=== PATIENT | female | born 1990 | race Caucasian/White ===

== ENCOUNTER → 2017-06-17 | Outpatient (CLI) | payer OTHER ==
[~2017-06-17] MED LIST: BACTRIM; Benadryl 50 mg50 MG PO; CEPH500 PO; CIPR500 PO; IBUP800; IBUP800 PO; OXYACE5T PO; Pepcid20 MG PO; Percocet 5-3251 EACH; Percocet 5-3251 EACH PO; Prednisone20 MG PO; Pyridium200 MG PO; RXOXYACE PO; SULTRISS PO
== END | disposition home or self-care (01) ==
LOC: LAB 10:54
DX: R30.0 Dysuria (principal)
CPT/HCPCS: 87086

== ENCOUNTER → 2017-07-23 | Outpatient (CLI) | payer OTHER ==
[2017-07-25 12:55] LABS: HPV Genotype 16 Not Detected (NOTDET); HPV Genotype 18 Not Detected (NOTDET)
[2017-07-30 09:01] LABS: HPV High Risk Other Detected (NOTDET)
== END | disposition home or self-care (01) ==
LOC: LAB 15:17
PROVIDERS: Obstetrics & Gynecology
DX: R87.613 High grade squamous intraepithelial lesion on cytologic smear of cervix (HGSIL) (principal); R87.810 Cervical high risk human papillomavirus (HPV) DNA test positive; R30.0 Dysuria
CPT/HCPCS: 87086; 87624; 88142

== ENCOUNTER → 2018-01-21 | Outpatient (CLI) | payer OTHER ==
[2018-01-23 16:09] LABS: HPV 16 Negative (Negative); HPV 18 Negative (Negative); HPV OTHER HR TYPES Negative (Negative)
== END | disposition home or self-care (01) ==
LOC: LAB 16:09 → LAB SHORT 16:09
PROVIDERS: Obstetrics & Gynecology
DX: R30.0 Dysuria (principal); R87.810 Cervical high risk human papillomavirus (HPV) DNA test positive
CPT/HCPCS: 87086; 87624; 88142

== ENCOUNTER → 2018-12-07 | Outpatient (CLI) | payer OTHER | END | disposition home or self-care (01) | LOC: LAB SHORT 17:02 → LAB 17:02 | DX: R30.0 Dysuria (principal) | CPT/HCPCS: 87086 ==

== ENCOUNTER → 2019-03-01 | Outpatient (CLI) | payer OTHER ==
[2019-03-01 13:38] LABS: U Amphetamine Screen Not Detected; U Barbituate Screen Not Detected; U Benzodiazapine Screen Not Detected; U Buprenorphine Screen Not Detected; U Cannabinoids Screen Not Detected; U Cocaine Screen Not Detected; U Methadone Screen Not Detected; U Methamphetamine Screen Not Detected; U Opiates Screen Not Detected; U Oxycodone Screen Not Detected; U Phencyclidine Screen Not Detected; U Propoxyphene Screen Not Detected
== END ==
LOC: LAB SHORT 11:20 → LAB 11:20
PROVIDERS: Registered Nurse Psychiatric/Mental Health
DX: Z51.81 Encounter for therapeutic drug level monitoring (principal); Z79.899 Other long term (current) drug therapy
CPT/HCPCS: 81025

== ENCOUNTER → 2019-03-31 | Outpatient (CLI) | payer OTHER ==
[2019-03-31 17:45] LABS: Source, Urine Clean Catch
[2019-03-31 18:46] LABS: Amorphous Mod (0-Heavy)
[2019-03-31 18:47] LABS: Bacteria Few /hpf; Red Blood Cells, Urine 0-2 /hpf (0-2); Squamous Epithelial Cells Few /hpf (Few); White Blood Cells, Urine 0-2 /hpf (0-5)
[2019-04-02 17:07] LABS: CHLAMYDIA TRACHOMATIS, NAA Negative (Negative); NEISSERIA GONORRHOEAE, NAA Negative (Negative)
== END ==
LOC: LAB 16:17 → LAB SHORT 16:17
PROVIDERS: Family Medicine
DX: R30.0 Dysuria (principal); R31.29 Other microscopic hematuria
CPT/HCPCS: 81015; 87086; 87491; 87591

== ENCOUNTER → 2019-07-28 | Outpatient (CLI) | payer OTHER ==
[2019-07-29 15:07] LABS: HPV 16 Negative (Negative); HPV 18 Negative (Negative); HPV OTHER HR TYPES Positive (Negative)
== END ==
LOC: LAB 11:22 → LAB SHORT 11:22
PROVIDERS: Obstetrics & Gynecology
DX: Z12.4 Encounter for screening for malignant neoplasm of cervix (principal)
CPT/HCPCS: 87624; 87625; G0123

== ENCOUNTER → 2020-04-13 | Outpatient (CLI) | payer OTHER | END | disposition home or self-care (01) | LOC: LAB 16:08 → LAB SHORT 16:08 | DX: N39.0 Urinary tract infection, site not specified (principal) | CPT/HCPCS: 87077; 87086; 87186 ==

== ENCOUNTER 2020-08-10 20:37 | Emergency (ER) | payer OTHER ==
[~2020-08-10] VITALS: Ht 154.9 cm; Wt 69.8 kg
[2020-08-10 23:38] LABS: Source, Urine Clean Catch
[2020-08-10 23:45] LABS: Bilirubin, Urine Neg (Neg); Blood, Urine Neg (Neg); Glucose Qualitative, Urine Neg (Neg); Ketones, Urine Neg (Neg); Leukocyte Esterase, Urine 1+ (Neg); Nitrite, Urine Neg (Neg); Protein, Urine Neg (Neg); Urobilinogen, Urine NORM (Normal)
[2020-08-10 23:51] LABS: Appearance, Urine Hazy (Clear); Color, Urine Yellow (P-Yellow)
[2020-08-10 23:52] LABS: Bacteria Mod /hpf; Red Blood Cells, Urine Not Seen /hpf (0-2); Squamous Epithelial Cells Many /hpf (Few)
[2020-08-11] MEDS ORDERED: IBU600 MG PO (00:26)
[2020-08-13 05:08] LABS: CHLAMYDIA TRACHOMATIS, NAA Negative (Negative)
== END 2020-08-11 00:29 | disposition home or self-care (01) ==
LOC: ER 20:37
PROVIDERS: Emergency Medicine; Physician Assistant
DX: N83.202 Unspecified ovarian cyst, left side (principal)
CPT/HCPCS: 76830; 76856; 81001; 87086; 87491; 87591; 99284-25; A9270

== ENCOUNTER → 2021-08-15 | Outpatient (CLI) | payer BC, OTHER ==
[~2021-08-15] MED LIST changes: +IBU600 MG PO
[2021-08-16 16:07] LABS: HPV 16 Negative (Negative); HPV 18 Negative (Negative); HPV OTHER HR TYPES Positive (Negative)
== END | disposition home or self-care (01) ==
LOC: LAB 11:27 → LAB SHORT 11:27
PROVIDERS: Obstetrics & Gynecology
DX: R87.810 Cervical high risk human papillomavirus (HPV) DNA test positive (principal)
CPT/HCPCS: 87624; 87625; 88142

== ENCOUNTER 2022-11-07 06:41 | Day surgery (SDC) | payer BC, OTHER ==
[~2022-11-07] VITALS: Ht 157.5 cm; Wt 75.1 kg
[2022-11-07] VITALS (11 sets, daily range): BP systolic 112–131; BP diastolic 73–82
[~2022-11-07 06:41] MED LIST changes: +AMPDEX15CR PO; +IBUP600 PO
--- NOTE | 2022-11-07 10:37 | NUR ---
0930 FROM PACU, AWAKE VSS, 2 SMALL ABD INC WITH SKIN GLUE D&I. SMALL YOLANDA RED VAG DRAINAGE NOTED.BETO PAD IN PLACE. 1015 DC INSTRUCTS REVIEWED. PT VERBALIZED UNDERSTANDING. AMBULATE TO BR, STEADY ON FEET. PAIN LEVEL DROPPED TO 2 1030 DC HOME TO CAR VIA W/C CARE TURNED OVER TO [facility]
== END 2022-11-07 23:22 | disposition home or self-care (01) ==
LOC: ORSCMMR 06:41 → ORD 08:00 → ORSCMMR 08:00 → ORD 09:00 → ORSCMMR 23:22
PROVIDERS: Obstetrics & Gynecology
PROC: 0UT74ZZ Resection of Bilateral Fallopian Tubes, Percutaneous Endoscopic Approach (ICD-10-PCS; principal; 2022-11-07 08:00)
DX: Z30.2 Encounter for sterilization (principal); F32.A Depression, unspecified; F90.9 Attention-deficit hyperactivity disorder, unspecified type; E66.9 Obesity, unspecified; Z68.36 Body mass index [BMI] 36.0-36.9, adult; Z79.899 Other long term (current) drug therapy
CPT/HCPCS: 88302; A9270; J1100; J1885; J2250; J2405; J2704; J3010; J7120

== ENCOUNTER → 2023-06-23 | Outpatient (CLI) | payer OTHER | END | disposition home or self-care (01) | LOC: LAB 15:26 → LAB SHORT 15:26 | DX: R30.0 Dysuria (principal) | CPT/HCPCS: 87086 ==

== ENCOUNTER → 2024-08-03 | Outpatient (CLI) | payer OTHER ==
[2024-08-03 13:53] LABS: Bacterial Vaginosis PCR Negative (NEGATIVE); Candida Group, PCR NOT DETECTED (NOT DETECT); Candida glabrata-krusei, PCR NOT DETECTED (NOT DETECT)
[2024-08-06 08:13] LABS: HPV HIGH RISK BY TMA Not Detected; HPV SOURCE Cervical
== END ==
LOC: LAB 11:34 → LAB SHORT 11:34
PROVIDERS: Family Medicine
DX: Z12.4 Encounter for screening for malignant neoplasm of cervix (principal)
CPT/HCPCS: 81515; 87624; G0123

== ENCOUNTER → 2024-09-04 | Outpatient (CLI) | payer OTHER ==
[2024-09-04 19:09] LABS: Source, Urine Clean Catch
[2024-09-04 19:14] LABS: Appearance, Urine Clear (Clear); Blood, Urine 4+ (Neg); Color, Urine Amber (P-Yellow); Glucose Qualitative, Urine Neg (Neg); Ketones, Urine Neg (Neg); Leukocyte Esterase, Urine Neg (Neg); Nitrite, Urine Pos (Neg); Protein, Urine 2+ (Neg); Specific Gravity, Urine 1.015 (1.003-1.022); Urobilinogen, Urine 2+ (Normal); pH, Urine 6.5 (5.0-8.0)
[2024-09-04 19:21] LABS: Bilirubin, Urine 2+ (Neg)
[2024-09-04 19:23] LABS: Bacteria Mod /hpf; Hyaline Casts 0-2 /lpf (0-2); Renal Epithelial Rare /hpf (0-Rare); Squamous Epithelial Cells Few /hpf (Few)
== END ==
LOC: LAB 17:45 → LAB SHORT 17:45
PROVIDERS: Nurse Practitioner Family
DX: R30.0 Dysuria (principal)
CPT/HCPCS: 81001; 87086